=== PATIENT | male | born 1960 | race Hispanic/Latino ===

== ENCOUNTER 2022-11-29 01:57 | Emergency (ER) | payer OTHER ==
--- NOTE | 2022-11-29 02:32 | EDPHYS ---
Physician Documentation [facility] Name: Faizan Castanon Sr Age: 62 yrs Sex: Male : 1960 Arrival Date: 11/29/2022 Time: 01:57 Bed DX5 Private MD: ED Physician Terrell Rodriguez HPI: 11/29 04:06 This 62 yrs old Male presents to ER via Ambulatory with complaints of Hip Pain.rt 04:06 Patient presents to the ED with a right lower back pain rating posteriorly down the rt back of the leg. He has a burning sensation down his leg. Denies bowel, bladder incontinence, saddle anesthesia. Denies injury. Denies other acute complaints at this time, symptoms are mild in severity, no other aggravating or alleviating factors.. 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 - Social history:: Smoking status: Patient/guardian denies using tobacco, but has a distant history of tobacco abuse. - Family history:: not pertinent. ROS: 04:06 Constitutional: Negative for fever, chills, and weight loss, Cardiovascular: Negative rt for chest pain, palpitations, and edema, Respiratory: Negative for shortness of breath, cough, wheezing, and pleuritic chest pain, Abdomen/GI: Negative for abdominal pain, nausea, vomiting, diarrhea, and constipation, MS/Extremity: Negative for injury and deformity, Skin: Negative for injury, rash, and discoloration, Neuro: Negative for headache, weakness, numbness, tingling, and seizure, Psych: Negative for depression, anxiety, suicide ideation, homicidal ideation, and hallucinations. 04:06 Back: Positive for pain at rest, radiated pain. Exam: 04:06 Constitutional: This is a well developed, well nourished patient who is awake, alert, rt and in no acute distress. Head/Face: Normocephalic, atraumatic. Neck: Trachea midline, no thyromegaly or masses palpated, and no cervical lymphadenopathy. Supple, full range of motion without nuchal rigidity, or vertebral point tenderness. No Meningismus. Chest/axilla: Normal chest wall appearance and motion. Nontender with no deformity. No lesions are appreciated. Cardiovascular: Regular rate and rhythm with a normal S1 and S2. No gallops, murmurs, or rubs. Normal PMI, no JVD. No pulse deficits. Respiratory: Lungs have equal breath sounds bilaterally, clear to auscultation and percussion. No rales, rhonchi or wheezes noted. No increased work of breathing, no retractions or nasal flaring. Abdomen/GI: Soft, non-tender, with normal bowel sounds. No distension or tympany. No guarding or rebound. No evidence of tenderness throughout. Skin: Warm, dry with normal turgor. Normal color with no rashes, no lesions, and no evidence of cellulitis. MS/ Extremity: Pulses equal, no cyanosis. Neurovascular intact. Full, normal range of motion. Neuro: Awake and alert, GCS 15, oriented to person, place, time, and situation. Cranial nerves II-XII grossly intact. Motor strength 5/5 in all extremities. Sensory grossly intact. Cerebellar exam normal. Normal gait. Psych: Awake, alert, with orientation to person, place and time. Behavior, mood, and affect are within normal limits. 04:06 Back: Tenderness to the right SI notch, no midline tenderness, no step-offs. Vital Signs: 02:15 BP 136 / 64; Pulse 78; Resp 18; Temp 98(O); Pulse Ox 99% on R/A; Weight 122.47 kg (R); kl Height 5 ft. 9 in. ; Pain 9/10; 02:15 Body Mass Index 39.87 (122.47 kg, 175.26 cm) kl 02:15 Pain Scale: Adult kl MDM: 02:23 Patient medically screened. rt 04:06 Differential diagnosis: Sciatica, mechanical back pain, SCA, cauda equina syndrome. rt Data reviewed: vital signs, nurses notes. Test considered but Not performed: MRI: No clinical evidence to suggest cauda equina syndrome, spinal epidural abscess, epidural hematoma, MRIs not indicated. Care significantly affected by the following chronic conditions: Diabetes. Response to treatment: the patient's symptoms have mildly improved after treatment. Administered Medications: 02:45 Drug: Ketorolac IM 15 mg Route: IM; Site: left deltoid; kl 02:50 Follow up: Response: No adverse reaction kl 02:45 Drug: HYDROcodone-acetaminophen PO 5 mg-325 mg 1 tabs Route: PO; kl 02:50 Follow up: Response: No adverse reaction kl 02:45 Drug: Cyclobenzaprine PO 10 mg Route: PO; kl 02:50 Follow up: Response: No adverse reaction kl Disposition Summary: 11/29/22 02:31 Discharge Ordered Location: Home rt Problem: new rt Symptoms: are unchanged rt Condition: Stable rt Diagnosis - Sciatica, right side rt Followup: rt - With: Private Physician - When: 2 - 3 days - Reason: Discharge Instructions: - Discharge Summary Sheet rt - Sciatica rt Forms: - Medication Reconciliation Form rt - Thank You Letter rt - Antibiotic Education rt - Prescription Opioid Use rt - Patient Portal Instructions rt Prescriptions: - gabapentin 100 mg Oral capsule - take 1 capsule by ORAL route every 8 hours; 30 capsule; Refills: 0, Product rt Selection Permitted - Cyclobenzaprine 10 mg Oral Tablet - take 1 tablet by ORAL route every 8 hours As needed; 30 tablet; Refills: 0, rt Product Selection Permitted Signatures: Luisa Stewart, RN RN Terrell Hernandez MD MD rt
--- NOTE | 2022-11-29 02:32 | ER ---
Nurse's Notes [facility] Name: Faizan Castanon Sr Age: 62 yrs Sex: Male : 1960 Arrival Date: 11/29/2022 Time: 01:57 Bed DX5 Private MD: Diagnosis: Sciatica, right side Presentation: 11/29 02:15 Chief complaint: Patient states: leg pain form right buttock radiating down back of kl right leg began at 6pm last evening. Coronavirus screen: Vaccine status: Patient reports being unvaccinated. Ebola Screen: Patient negative for fever greater than or equal to 101.5 degrees Fahrenheit, and additional compatible Ebola Virus Disease symptoms. Initial Sepsis Screen: Does the patient meet any 2 criteria? No. Patient's initial sepsis screen is negative. Does the patient have a suspected source of infection? No. Patient's initial sepsis screen is negative. Risk Assessment: Do you want to hurt yourself or someone else? Patient reports no desire to harm self or others. 02:15 Method Of Arrival: Ambulatory 02:15 Acuity: SYDNEE 4 kl Triage Assessment: 02:19 General: Appears uncomfortable, Behavior is calm, cooperative, Smells of. Pain: Complains of pain in right gluteus radha Pain radiates to back of right leg Pain currently is 9 out of 10 on a pain scale. EENT: No deficits noted. Neuro: No deficits noted. Cardiovascular: No deficits noted. Respiratory: No deficits noted. GI: No deficits noted. No signs and/or symptoms were reported involving the gastrointestinal system. : No deficits noted. No signs and/or symptoms were reported regarding the genitourinary system. Derm: No deficits noted. No signs and/or symptoms reported regarding the dermatologic system. 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 - Social history:: Smoking status: Patient/guardian denies using tobacco, but has a distant history of tobacco abuse. - Family history:: not pertinent. Screenin:50 [facility] ED Fall Risk Assessment (Adult) History of falling in the last 3 months, including since admission No falls in past 3 months (0 pts) Confusion or Disorientation No (0 pts) Intoxicated or Sedated No (0 pts) Impaired Gait Yes (1 pt) Mobility Assist Device Used No (0 pt) Altered Elimination No (0 pt) Score/Fall Risk Level 0 - 2 = Low Risk Oriented to surroundings, Maintained a safe environment. Abuse screen: Denies threats or abuse. Nutritional screening: No deficits noted. Tuberculosis screening: No symptoms or risk factors identified. Assessment: 02:50 Reassessment: Patient appears in no apparent distress at this time. Patient is alert, kl oriented x 3, equal unlabored respirations, skin warm/dry/pink. Vital Signs: 02:15 BP 136 / 64; Pulse 78; Resp 18; Temp 98(O); Pulse Ox 99% on R/A; Weight 122.47 kg (R); kl Height 5 ft. 9 in. ; Pain 9/10; 02:15 Body Mass Index 39.87 (122.47 kg, 175.26 cm) kl 02:15 Pain Scale: Adult ED Course: 02:01 Patient arrived in ED. [id number] 02:11 Terrell Rodriguez MD is Attending Physician. rt 02:17 Triage completed. kl 02:50 Patient has correct armband on for positive identification. kl 02:51 No provider procedures requiring assistance completed. Patient did not have IV access kl during this emergency room visit. Administered Medications: 02:45 Drug: Ketorolac IM 15 mg Route: IM; Site: left deltoid; kl 02:50 Follow up: Response: No adverse reaction kl 02:45 Drug: HYDROcodone-acetaminophen PO 5 mg-325 mg 1 tabs Route: PO; kl 02:50 Follow up: Response: No adverse reaction kl 02:45 Drug: Cyclobenzaprine PO 10 mg Route: PO; kl 02:50 Follow up: Response: No adverse reaction Outcome: 02:31 Discharge ordered by . rt 02:51 Discharged to home ambulatory, with family. kl 02:51 Condition: stable 02:51 Discharge instructions given to patient, Instructed on discharge instructions, follow up and referral plans. medication usage, Demonstrated understanding of instructions, follow-up care, medications, Prescriptions given X 2. 02:51 Patient left the ED. Signatures: Luisa Stewart RN RN Venus Rivera [email or web address] Terrell Rodriguez MD MD rt
[2022-11-29] MEDS ORDERED: CYCLOBENZAPRINE 10 MG TAB ONE (02:48)
[2022-11-29] MEDS ORDERED: HYDROCODONE/APAP 5/325 MG TAB ONE (02:48)
[2022-11-29] MEDS ORDERED: KETOROLAC 30 MG/ML INJ ONE (02:49)
[2022-11-29 03:03] VITALS: BP 136/64; TEMP 98; O2SAT 99
== END 2022-11-29 02:51 | disposition home or self-care (01) ==
LOC: ER 01:57
DX: M54.31 Sciatica, right side (principal)
CPT/HCPCS: 96372; 99284